=== PATIENT | female | born 1965 | race Hispanic/Latino ===

== ENCOUNTER 2018-12-11 23:16 | Emergency (ER) | payer SELFPAY ==
[2018-12-11] MEDS ORDERED: ASPIRIN PO ONE (23:39)
[2018-12-12 00:45] LABS: Basophils # (Auto) 0.1 K/mm3 (0.0-0.1); Basophils % (Auto) 0.6 % (0.0-1.8); Eosinophils # (Auto) 0.1 K/mm3 (0.0-0.4); Eosinophils % (Auto) 1.1 % (0.0-4.3); Hematocrit 39.4 % (30.3-42.9); Hemoglobin 13.4 gm/dl (10.1-14.3); Lymphocytes # (Auto) 1.8 K/mm3 (1.2-5.4); Lymphocytes % (Auto) 20.5 % (13.4-35.0); Mean Corpuscular HGB Conc 34 % (30-34); Mean Corpuscular Volume 94 fl (79-97); Monocytes # (Auto) 0.6 K/mm3 (0.0-0.8); Monocytes % (Auto) 6.6 % (0.0-7.3); Platelet Count 256 K/mm3 (140-440); Red Blood Count 4.19 M/mm3 (3.65-5.03); Red Cell Distribution Width 13.8 % (13.2-15.2)
--- NOTE | 2018-12-12 00:56 | XRay Report ---
CHEST 1 VIEW INDICATION / CLINICAL INFORMATION: Chest Pain. COMPARISON: None available. FINDINGS: SUPPORT DEVICES: None. HEART / MEDIASTINUM: No significant abnormality. LUNGS / PLEURA: No significant pulmonary or pleural abnormality. No pneumothorax. ADDITIONAL FINDINGS: No significant additional findings. IMPRESSION: 1. No acute findings. Signer Name: Kulwinder Wynn MD Signed: 12/12/2018 12:51 AM Workstation Name: [id number]
[2018-12-12 01:11] LABS: BUN/Creatinine Ratio 13; Blood Urea Nitrogen 12 mg/dL (7-17); Hemolysis Index 40
--- NOTE | 2018-12-12 05:43 | Emergency Department Report ---
ED General Adult HPI - General Chief complaint: Chest Pain Stated complaint: CHEST PRESSURE/ANXIETY Time Seen by Provider: 12/12/18 04:55 Source: patient Mode of arrival: Ambulatory Limitations: No Limitations - History of Present Illness Initial comments: Patient is a 53 yo WF with a h/o chronic anxiety and panic attacks, HTN, NIDDM, presents to the ED with complaint of acute onset persistent shortness of breath and left-sided chest wall discomfort about 4 hours ago. Patient states that the symptoms have since resolved upon arrival in the ED. The patient states that her anxiety and panic attacks usually makes her wake up from her sleep at night feeling and thinking that she is short of breath. Patient states that she had a similar experience tonight with left-sided chest discomfort as it is going to the ED for evaluation. Patient denies dizziness, nausea, vomiting, diaphoresis, numbness and tingling of left arm, abdominal pain, sore throat, cough, neck pain, change in vision or palpitations. MD Complaint: panic attack, left chest pain, dyspnea -: Sudden, hour(s) (4) Location: chest Radiation: non-radiation Severity scale (0 -10): 3 Quality: aching, dull Consistency: constant Improves with: none Worsens with: none Associated Symptoms: denies other symptoms, chest pain, shortness of breath. denies: confusion, cough, diaphoresis, fever/chills, headaches, loss of appetite, malaise, nausea/vomiting, rash, seizure, syncope, weakness Treatments Prior to Arrival: none - Related Data Home Medications Medication Instructions Recorded Confirmed Last Taken Methadone [Dolophine] 90 mg PO QDAY 04/23/13 04/29/15 04/28/15 08:00 Sertraline [Zoloft] 100 mg PO QDAY 04/23/13 04/29/15 04/28/15 08:00 Previous Rx's Medication Instructions Recorded Last Taken Type Lisinopril [Zestril TAB] 40 mg PO QDAY #30 tablet 02/24/14 Unknown Rx Lisinopril/Hydrochlorothiazide 1 tab PO QDAY #30 tab 04/29/15 Unknown Rx [Zestoretic 20-12.5 mg] oxyCODONE /ACETAMINOPHEN [Percocet 1 tab PO Q6HR PRN #14 tablet 04/29/15 Unknown Rx 5/325] hydrOXYzine PAMOATE [Vistaril] 50 mg PO QHS PRN #20 capsule 12/12/18 Unknown Rx Allergies Allergy/AdvReac Type Severity Reaction Status Date / Time Sulfa (Sulfonamide Allergy Swelling Verified 04/29/15 07:18 Antibiotics) ED Review of Systems ROS: Stated complaint: CHEST PRESSURE/ANXIETY Other details as noted in HPI Constitutional: denies: chills, fever Eyes: denies: eye pain, eye discharge, vision change ENT: denies: ear pain, throat pain Respiratory: shortness of breath. denies: cough, wheezing Cardiovascular: chest pain. denies: palpitations Endocrine: no symptoms reported Gastrointestinal: denies: abdominal pain, nausea, diarrhea Genitourinary: denies: urgency, dysuria, discharge Musculoskeletal: denies: back pain, joint swelling, arthralgia Skin: denies: rash, lesions Neurological: denies: headache, weakness, paresthesias Psychiatric: anxiety. 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 - Surgical History Past Surgical History?: Yes Additional Surgical History: tubal ligation - Social History Smoking Status: Current Every Day Smoker Substance Use Type: None - Medications Home Medications: Home Medications Medication Instructions Recorded Confirmed Last Taken Type Methadone [Dolophine] 90 mg PO QDAY 04/23/13 04/29/15 04/28/15 08:00 History Sertraline [Zoloft] 100 mg PO QDAY 04/23/13 04/29/15 04/28/15 08:00 History Lisinopril [Zestril TAB] 40 mg PO QDAY #30 tablet 02/24/14 04/29/15 Unknown Rx Lisinopril/Hydrochlorothiazide 1 tab PO QDAY #30 tab 04/29/15 Unknown Rx [Zestoretic 20-12.5 mg] oxyCODONE /ACETAMINOPHEN [Percocet 1 tab PO Q6HR PRN #14 tablet 04/29/15 Unknown Rx 5/325] hydrOXYzine PAMOATE [Vistaril] 50 mg PO QHS PRN #20 capsule 12/12/18 Unknown Rx ED Physical Exam - General Limitations: No Limitations General appearance: alert, in no apparent distress - Head Head exam: Present: atraumatic, normocephalic, normal inspection - Eye Eye exam: Present: normal appearance, PERRL, EOMI. Absent: scleral icterus Pupils: Present: normal accommodation - ENT ENT exam: Present: normal exam, normal orophraynx, mucous membranes moist, TM's normal bilaterally, normal external ear exam - Neck Neck exam: Present: normal inspection, full ROM. Absent: tenderness - Respiratory Respiratory exam: Present: normal lung sounds bilaterally. Absent: respiratory distress, wheezes, rales, rhonchi, chest wall tenderness, accessory muscle use - Cardiovascular Cardiovascular Exam: Present: regular rate, normal rhythm, normal heart sounds. Absent: systolic murmur, diastolic murmur, rubs, gallop - GI/Abdominal GI/Abdominal exam: Present: soft, normal bowel sounds - Extremities Exam Extremities exam: Present: normal inspection, full ROM, normal capillary refill - Back Exam Back exam: Present: normal inspection, full ROM. Absent: tenderness, CVA tenderness (R), muscle spasm, paraspinal tenderness - Neurological Exam Neurological exam: Present: alert, oriented X3, CN II-XII intact, normal gait, reflexes normal - Psychiatric Psychiatric exam: Present: normal affect, normal mood, anxious - Skin Skin exam: Present: warm, dry, intact, normal color. Absent: rash ED Course Vital Signs 12/11/18 23:31 Temperature 97.8 F Pulse Rate 75 Respiratory 14 Rate Blood Pressure 166/88 O2 Sat by Pulse 98 Oximetry - Reevaluation(s) Reevaluation #1: 12/12/18 05:45 Patient is alert and oriented 3 and is not in distress with normal vital signs. Laboratory results were reviewed and an unremarkable. Chest x-ray shows no acute cardiopulmonary abnormalities. EKG shows normal sinus rhythm with ventricular rate of 74 bpm, and normal T waves or ST wave abnormalities. On reevaluation, patient currently does not have any chest discomfort or shortness of breath and states that her symptoms are resolved upon arrival to the ED. Patient's symptoms are likely due to panic attacks and anxiety given that the lab test results including initial troponin and the second troponin levels are normal. Patient was discharged home and advised to follow-up with her primary care physician in 2-3 days for reevaluation. Patient will be sent home on Vistaril for anxiety. Patient was advised to return to the ED immediately if symptoms get worse. ED Medical Decision Making - Lab Data Result diagrams: 12/12/18 00:21 12/12/18 00:21 - EKG Data EKG shows normal: sinus rhythm Rate: normal - EKG Data Interpretation: normal EKG - Radiology Data Radiology results: report reviewed, image reviewed Chest x-ray: No acute cardiopulmonary abnormalities - Medical Decision Making Patient is alert and oriented 3 and is not in distress with normal vital signs. Laboratory results were reviewed and an unremarkable. Chest x-ray shows no acute cardiopulmonary abnormalities. EKG shows normal sinus rhythm with ventricular rate of 74 bpm, and normal T waves or ST wave abnormalities. On reevaluation, patient currently does not have any chest discomfort or shortness of breath and states that her symptoms are resolved upon arrival to the ED. Patient's symptoms are likely due to panic attacks and anxiety given that the lab test results including initial troponin and the second troponin levels are normal. Patient was discharged home and advised to follow-up with her primary care physician in 2-3 days for reevaluation. Patient will be sent home on Vistaril for anxiety. Patient was advised to return to the ED immediately if symptoms get worse. - Differential Diagnosis nonspecific chest pain; Anxiety and panic attack, dyspnea Critical care attestation.: If time is entered above; I have spent that time in minutes in the direct care of this critically ill patient, excluding procedure time. ED Disposition Clinical Impression: Anxiety as acute reaction to exceptional stress, Nonspecific chest pain, Dyspnea Disposition: - TO HOME OR SELFCARE Is pt being admited?: No Does the pt Need Aspirin: No Condition: Stable Instructions: Chest Pain (ED), Generalized Anxiety Disorder (ED), Dyspnea (ED) Additional Instructions: Take medications as advised, follow up with her primary care physician in 2-3 days for reevaluation. Return to the ED immediately if symptoms get worse. Prescriptions: hydrOXYzine PAMOATE [Vistaril] 50 mg PO QHS PRN #20 capsule PRN Reason: Anxiety Referrals: [facility] [Outside] - 3-5 Days Time of Disposition: 05:50 Print Language: LITHUANIAN
[2018-12-12 06:19] VITALS: BP 142/87
== END 2018-12-12 06:18 | disposition home or self-care (01) ==
LOC: ED 12-12 00:16
DX: R07.89 Other chest pain (principal); R06.00 Dyspnea, unspecified; R06.02 Shortness of breath; F41.1 Generalized anxiety disorder; I10 Essential (primary) hypertension; F32.9 Major depressive disorder, single episode, unspecified; F17.200 Nicotine dependence, unspecified, uncomplicated; Z98.51 Tubal ligation status; Z88.2 Allergy status to sulfonamides
CPT/HCPCS: 36415; 71045; 80048; 84484; 85025; 93005; 93010